=== PATIENT | female | born 1950 | race Caucasian/White ===

== ENCOUNTER → 2016-06-12 | Outpatient (CLI) | payer OTHER ==
[2016-06-12 13:06] LABS: ALT 31 U/L (9-52); AST 23 U/L (14-36); Alkaline Phosphatase 118 U/L (38-126); Anion Gap 11 mmol/L; Blood Urea Nitrogen 18 mg/dL (7-17); Calcium 10.7 mg/dL (8.4-10.2); Carbon Dioxide 29 mmol/L (22-30); Chloride 104 mmol/L (98-107); Glucose 97 mg/dL (74-99); Non-African American GFR(MDRD) >60 (>60 ml/min/1.73 sqM); Potassium 4.4 mmol/L (3.5-5.1); Sodium 144 mmol/L (137-145); Total Bilirubin 0.6 mg/dL (0.2-1.3); Total Protein 7.1 g/dL (6.3-8.2)
== END | disposition home or self-care (01) ==
LOC: LABWHC1 12:24
PROVIDERS: ATTEND Internal Medicine Endocrinology, Diabetes & Metabolism
DX: E21.0 Primary hyperparathyroidism (principal)
CPT/HCPCS: 36415; 80053; 82306; 83970

== ENCOUNTER → 2016-10-22 | Outpatient (CLI) | payer OTHER ==
[2016-10-22 10:30] LABS: ALT 21 U/L (9-52); AST 23 U/L (14-36); Alkaline Phosphatase 114 U/L (38-126); Anion Gap 9 mmol/L; Blood Urea Nitrogen 25 mg/dL (7-17); Calcium 10.4 mg/dL (8.4-10.2); Carbon Dioxide 25 mmol/L (22-30); Chloride 106 mmol/L (98-107); Glucose 91 mg/dL (74-99); Non-African American GFR(MDRD) >60 (>60 ml/min/1.73 sqM); Potassium 4.6 mmol/L (3.5-5.1); Sodium 140 mmol/L (137-145); Total Bilirubin 0.4 mg/dL (0.2-1.3); Total Protein 7.2 g/dL (6.3-8.2)
== END ==
LOC: LABWHC1 09:41
PROVIDERS: ATTEND Internal Medicine Endocrinology, Diabetes & Metabolism
DX: E21.0 Primary hyperparathyroidism (principal)
CPT/HCPCS: 36415; 80053; 82306; 83970

== ENCOUNTER → 2017-04-07 | Outpatient (CLI) | payer MEDICARE ==
[2017-04-07 13:03] LABS: ALT 29 U/L (9-52); AST 21 U/L (14-36); Alkaline Phosphatase 89 U/L (38-126); Anion Gap 9 mmol/L; Blood Urea Nitrogen 24 mg/dL (7-17); Calcium 10.5 mg/dL (8.4-10.2); Carbon Dioxide 30 mmol/L (22-30); Chloride 103 mmol/L (98-107); Glucose 101 mg/dL (74-99); Non-African American GFR(MDRD) >60 (>60 ml/min/1.73 sqM); Potassium 4.3 mmol/L (3.5-5.1); Sodium 142 mmol/L (137-145); Total Bilirubin 0.2 mg/dL (0.2-1.3); Total Protein 7.1 g/dL (6.3-8.2)
== END | disposition home or self-care (01) ==
LOC: LABWHC1 11:47
PROVIDERS: ATTEND Internal Medicine Endocrinology, Diabetes & Metabolism
DX: E21.0 Primary hyperparathyroidism (principal)
CPT/HCPCS: 36415; 80053; 82306; 83970; 84443

== ENCOUNTER → 2017-08-11 | Outpatient (CLI) | payer MEDICARE ==
[2017-08-11 10:45] LABS: ALT 27 U/L (9-52); AST 24 U/L (14-36); Albumin 4.4 g/dL (3.5-5.0); Alkaline Phosphatase 115 U/L (38-126); Anion Gap 9 mmol/L; Blood Urea Nitrogen 17 mg/dL (7-17); Calcium 10.8 mg/dL (8.4-10.2); Carbon Dioxide 28 mmol/L (22-30); Chloride 104 mmol/L (98-107); Glucose 91 mg/dL (74-99); Potassium 4.4 mmol/L (3.5-5.1); Sodium 141 mmol/L (137-145); Total Bilirubin 0.4 mg/dL (0.2-1.3); Total Protein 7.2 g/dL (6.3-8.2)
[2017-08-11 15:56] LABS: Vitamin D 25 Hydroxy 49.6 ng/mL (30.0-100.0)
== END | disposition home or self-care (01) ==
LOC: LABWHC1 09:56
PROVIDERS: ATTEND Internal Medicine Endocrinology, Diabetes & Metabolism
DX: E21.0 Primary hyperparathyroidism (principal)
CPT/HCPCS: 36415; 80053; 82306; 83970

== ENCOUNTER → 2017-12-17 | Outpatient (CLI) | payer MEDICARE ==
[2017-12-17 11:28] LABS: ALT 32 U/L (9-52); AST 27 U/L (14-36); Albumin 4.2 g/dL (3.5-5.0); Alkaline Phosphatase 99 U/L (38-126); Anion Gap 7 mmol/L; Blood Urea Nitrogen 21 mg/dL (7-17); Calcium 10.3 mg/dL (8.4-10.2); Carbon Dioxide 27 mmol/L (22-30); Chloride 106 mmol/L (98-107); Glucose 95 mg/dL (74-99); Potassium 4.3 mmol/L (3.5-5.1); Sodium 140 mmol/L (137-145); Total Bilirubin 0.4 mg/dL (0.2-1.3); Total Protein 6.7 g/dL (6.3-8.2)
[2017-12-17 16:48] LABS: Parathyroid Hormone Intact 107.4 pg/mL (14.0-72.0)
[2017-12-17 17:57] LABS: Vitamin D 25 Hydroxy 27.3 ng/mL (30.0-100.0)
== END | disposition home or self-care (01) ==
LOC: LABWHC1 10:47
PROVIDERS: ATTEND Internal Medicine Endocrinology, Diabetes & Metabolism
DX: E21.0 Primary hyperparathyroidism (principal)
CPT/HCPCS: 36415; 80053; 82306; 83970

== ENCOUNTER → 2018-06-01 | Outpatient (CLI) | payer MEDICARE ==
[2018-06-01 17:32] LABS: ALT 28 U/L (9-52); AST 27 U/L (14-36); Albumin 3.9 g/dL (3.5-5.0); Albumin/Globulin Ratio 1.5; Alkaline Phosphatase 110 U/L (38-126); Anion Gap 6 mmol/L; Blood Urea Nitrogen 20 mg/dL (7-17); Calcium 10.1 mg/dL (8.4-10.2); Carbon Dioxide 28 mmol/L (22-30); Chloride 106 mmol/L (98-107); Globulin 2.6 g/dL; Glucose 88 mg/dL (74-99); Potassium 4.1 mmol/L (3.5-5.1); Sodium 140 mmol/L (137-145); Total Bilirubin 0.2 mg/dL (0.2-1.3); Total Protein 6.5 g/dL (6.3-8.2)
[2018-06-02 04:37] LABS: Vitamin D 25 Hydroxy 49.2 ng/mL (30.0-100.0)
[2018-06-02 05:07] LABS: Parathyroid Hormone Intact 110.6 pg/mL (14.0-72.0)
== END | disposition home or self-care (01) ==
LOC: LABWHC1 16:35
PROVIDERS: ATTEND Internal Medicine Endocrinology, Diabetes & Metabolism
DX: E21.0 Primary hyperparathyroidism (principal)
CPT/HCPCS: 36415; 80053; 82306; 83970

== ENCOUNTER → 2018-08-05 | Outpatient (CLI) | payer MEDICARE ==
--- NOTE | 2018-08-05 12:22 | MM ---
Reason for exam: screening (asymptomatic). Last mammogram was performed 1 year and 3 months ago. History: Patient is postmenopausal. Benign cyst aspiration of the right breast, August 31, 1999. Benign excisional biopsy of the left breast, 1995. Cyst aspiration of the left breast. Cyst aspiration of the right breast. Excisional biopsy of the right breast. Physical Findings: A clinical breast exam by your physician is recommended on an annual basis and results should be correlated with mammographic findings. MG 3D Screening Mammo W/Cad Bilateral CC and MLO view(s) were taken. Prior study comparison: May 14, 2017, bilateral MG 3d screening mammo w/cad. December 06, 2015, bilateral MG screening mammo w CAD. The breast tissue is heterogeneously dense. This may lower the sensitivity of mammography. There are benign appearing vascular calcifications bilaterally. There is no discrete abnormality. ASSESSMENT: Benign, BI-RAD 2 RECOMMENDATION: Routine screening mammogram of both breasts in 1 year.
== END | disposition home or self-care (01) ==
LOC: RADMAMWWP 08:33
PROVIDERS: ATTEND Internal Medicine
DX: Z12.31 Encounter for screening mammogram for malignant neoplasm of breast (principal)
CPT/HCPCS: 77063; 77067

== ENCOUNTER → 2018-09-23 | Outpatient (CLI) | payer MEDICARE ==
[2018-09-24 00:18] LABS: Vitamin D 25 Hydroxy 30.9 ng/mL (30.0-100.0)
[2018-09-24 00:31] LABS: Albumin 4.2 g/dL (3.80-4.90); Albumin/Globulin Ratio 2.63 (1.60-3.17); Anion Gap 10.6 mmol/L (4.00-12.00); Calcium 10.1 mg/dL (8.7-10.3); Carbon Dioxide 24.4 mmol/L (21.6-31.8); Globulin 1.6 g/dL (1.6-3.3); Potassium 3.8 mmol/L (3.5-5.5); Total Bilirubin 0.3 mg/dL (0.2-1.2); Total Protein 5.8 g/dL (6.2-8.2)
== END | disposition home or self-care (01) ==
LOC: LABWHC1 14:04
PROVIDERS: ATTEND Internal Medicine Endocrinology, Diabetes & Metabolism
DX: E21.0 Primary hyperparathyroidism (principal)
CPT/HCPCS: 36415; 80053; 82306; 83970

== ENCOUNTER → 2019-03-31 | Outpatient (CLI) | payer MEDICARE ==
--- NOTE | 2019-03-31 07:18 | US ---
EXAMINATION TYPE: US thyroid st tissue head/neck DATE OF EXAM: 03/31/2019 COMPARISON: US CLINICAL HISTORY: E21.0 Primary Hyperparathyroidism. Hyperparathyroidism GLAND SIZE: Right Lobe: 3.4 x 1.3 x 1.3 cm Overall Parenchyma: Slightly heterogeneous Left Lobe: 3.9 x 0.9 x 1.2 cm Overall Parenchyma: Slightly heterogeneous Isthmus Thickness: 0.5 cm Bilateral neck scanned, no evidence of lymphadenopathy. No evidence of nodules bilaterally, stable ap pearance when compared to previous. Please note parathyroid area scanned, no abnormality visualized. IMPRESSION: Slightly heterogenous thyroid echotexture, however no discrete measurable nodule is seen in the thyroid gland is nonenlarged.
[2019-03-31 11:30] LABS: African American GFR (CKD) 107.8 (60.0-200.0); Albumin 4.4 g/dL (3.80-4.90); Albumin/Globulin Ratio 2.2 (1.60-3.17); Anion Gap 6.3 mmol/L (4.00-12.00); BUN/Creat Ratio 33.33 Ratio (12.00-20.00); Calcium 10.2 mg/dL (8.7-10.3); Carbon Dioxide 27.7 mmol/L (21.6-31.8); Potassium 4.6 mmol/L (3.5-5.5); Total Bilirubin 0.3 mg/dL (0.3-1.2); Total Protein 6.4 g/dL (6.2-8.2)
== END | disposition home or self-care (01) ==
LOC: LABWHC1 06:35
PROVIDERS: ATTEND Internal Medicine Endocrinology, Diabetes & Metabolism
DX: E07.89 Other specified disorders of thyroid (principal); E21.0 Primary hyperparathyroidism
CPT/HCPCS: 36415; 76536; 80053; 82306; 83970

== ENCOUNTER → 2019-04-14 | Outpatient (CLI) | payer MEDICARE ==
[2019-04-14 20:40] LABS: Calcium 24 Hour,Urine 116.6 mg/24Hr (100.0-250.0)
== END | disposition home or self-care (01) ==
LOC: LABWHC1 13:58
PROVIDERS: ATTEND Internal Medicine Endocrinology, Diabetes & Metabolism
DX: E21.0 Primary hyperparathyroidism (principal); R53.83 Other fatigue
CPT/HCPCS: 36415; 81050; 82340; 84443

== ENCOUNTER → 2019-04-16 | Outpatient (CLI) | payer MEDICARE ==
--- NOTE | 2019-04-19 16:45 | BD ---
EXAMINATION TYPE: Axial Bone Density DATE OF EXAM: 04/16/2019 COMPARISON: NONE CLINICAL HISTORY: Height: 4 FT 9 3/4 IN Weight: 153 FRAX RISK QUESTIONS: History of Fracture in Adulthood: YES Secondary Osteoporosis: 3. Menopause before 45: YES RISK FACTORS HISTORY OF: Active: YES Postmenopausal woman: AGE 43 Hyperparathyroidism: YES MEDICATIONS: Additional Medications: VIT D, BLOOD PRESSURE MEDS, OTC JOINT HEALTH,LOW DOSE ASPIRIN Additional History: EXAM MEASUREMENTS: Bone mineral densitometry was performed using the [employer] System. Bone mineral density as measured about the Lumbar spine is: ----- L1-L4(G/cm2): 0.972 T Score Values are as follows: ----- L2: -2.0 ----- L3: -2.0 ----- L4: -1.2 ----- L1-L4: -1.7 Bone mineral density has: INCREASED 0.8 % SINCE STUDY OF 2015 Bone mineral density about the R hip (g/cm2): 0.824 Bone mineral density about the L hip (g/cm2): 0.768 T Score values are as follows: -----R Neck: -1.5 -----L Neck: -1.9 -----R Total: -1.3 -----L Total: -1.6 Bone mineral density has: DECREASED -4.5 % SINCE STUDY OF 2015 IMPRESSION: Osteopenia (T Score between -2.5 and -1). There is slightly increased risk of fracture and the patient may be considered for treatment. Re-Screen 2-5 years. NOTE: T-SCORE=SD OF THE YOUNG ADULT MEAN.
== END | disposition home or self-care (01) ==
LOC: RADBDWWP 15:31
PROVIDERS: ATTEND Internal Medicine Endocrinology, Diabetes & Metabolism
DX: E21.0 Primary hyperparathyroidism (principal); M85.80 Other specified disorders of bone density and structure, unspecified site
CPT/HCPCS: 77080

== ENCOUNTER → 2019-07-14 | Outpatient (CLI) | payer MEDICARE ==
[2019-07-14 16:18] LABS: African American GFR (CKD) 114.5 (60.0-200.0); Albumin 4.2 g/dL (3.80-4.90); Albumin/Globulin Ratio 2.47 (1.60-3.17); Anion Gap 5.7 mmol/L (4.00-12.00); Calcium 9.3 mg/dL (8.7-10.3); Carbon Dioxide 27.3 mmol/L (21.6-31.8); Globulin 1.7 g/dL (1.6-3.3); Non-African American GFR(CKD) 98.8 (60.0-200.0); Potassium 4.1 mmol/L (3.5-5.5); Total Bilirubin 0.5 mg/dL (0.2-1.2); Total Protein 5.9 g/dL (6.2-8.2)
[2019-07-14 18:45] LABS: Calcium 24 Hour,Urine 85.3 mg/24Hr (100.0-250.0)
== END | disposition home or self-care (01) ==
LOC: LABWHC1 10:11
PROVIDERS: ATTEND Internal Medicine Endocrinology, Diabetes & Metabolism
DX: E83.52 Hypercalcemia (principal); R53.83 Other fatigue; E89.0 Postprocedural hypothyroidism
CPT/HCPCS: 36415; 80053; 81050; 82306; 82340; 84443

== ENCOUNTER → 2019-12-07 | Outpatient (CLI) | payer MEDICARE ==
[2019-12-07 17:45] LABS: Albumin 4.3 g/dL (3.80-4.90); Albumin/Globulin Ratio 2.05 (1.60-3.17); Anion Gap 8.8 mmol/L (4.00-12.00); BUN/Creat Ratio 38.33 Ratio (12.00-20.00); Calcium 9.6 mg/dL (8.7-10.3); Carbon Dioxide 26.2 mmol/L (21.6-31.8); Globulin 2.1 g/dL (1.6-3.3); Non-African American GFR(CKD) 92.4 (60.0-200.0); Potassium 4.4 mmol/L (3.5-5.5); Total Bilirubin 0.5 mg/dL (0.3-1.2); Total Protein 6.4 g/dL (6.2-8.2)
== END | disposition home or self-care (01) ==
LOC: LABWHC1 10:00
PROVIDERS: ATTEND Internal Medicine Endocrinology, Diabetes & Metabolism
DX: E21.0 Primary hyperparathyroidism (principal); E55.9 Vitamin D deficiency, unspecified
CPT/HCPCS: 36415; 80053; 82306; 83970

== ENCOUNTER → 2020-05-10 | Outpatient (CLI) | payer MEDICARE ==
--- NOTE | 2020-05-10 11:05 | XR ---
EXAMINATION TYPE: XR chest 2V DATE OF EXAM: 05/10/2020 COMPARISON: NONE HISTORY: Shortness of breath TECHNIQUE: Frontal and lateral views of the chest are obtained. FINDINGS: Scattered senescent parenchymal changes noted. Hyperinflation compatible with COPD. No evidence for infiltrate. No evidence for atelectasis. Heart size is stable. Mediastinal structures are stable and grossly unremarkable. No evidence for hilar prominence. Degenerative changes dorsal spine. IMPRESSION: 1. No evidence for acute pulmonary disease.
[2020-05-10 11:31] LABS: HCT 40.2 % (34.0-46.0); HGB 13.2 gm/dL (11.4-16.0); MCH 29.4 pg (25.0-35.0); MCHC 32.9 g/dL (31.0-37.0); MCV 89.4 fL (80.0-100.0); Mean Platelet Volume 8.4; Platelet Count 215 k/uL (150-450); RDW 12.5 % (11.5-15.5); WBC 7.1 k/uL (3.8-10.6)
[2020-05-10 15:49] LABS: Albumin 4.3 g/dL (3.80-4.90); Albumin/Globulin Ratio 2.39 (1.60-3.17); Anion Gap 7.8 mmol/L (4.00-12.00); Calcium 9.3 mg/dL (8.7-10.3); Carbon Dioxide 27.2 mmol/L (21.6-31.8); Globulin 1.8 g/dL (1.6-3.3); Non-African American GFR(CKD) 92.4 (60.0-200.0); Potassium 4.1 mmol/L (3.5-5.5); Total Bilirubin 0.5 mg/dL (0.2-1.2); Total Protein 6.1 g/dL (6.2-8.2)
== END | disposition home or self-care (01) ==
LOC: LABWHC1 10:29
PROVIDERS: ATTEND Internal Medicine
DX: R50.9 Fever, unspecified (principal)
CPT/HCPCS: 36415; 71046; 80053; 85027; 87040

== ENCOUNTER → 2020-05-11 | Outpatient (CLI) | payer MEDICARE ==
--- NOTE | 2020-05-11 13:14 | ECHOF ---
Referral Reason:R50.82 post procedural fever MEASUREMENTS -------- HEIGHT: 147.3 cm WEIGHT: 68.0 kg BP: 120/63 RVIDd: 3.0 cm (< 3.3) IVSd: 1.1 cm (0.6 - 1.1) LVIDd: 4.1 cm (3.9 - 5.3) LVPWd: 1.1 cm (0.6 - 1.1) IVSs: 1.6 cm LVIDs: 2.4 cm LVPWs: 1.5 cm LA Diam: 3.4 cm (2.7 - 3.8) LAESV Index (A-L): 18.04 ml/m Ao Diam: 2.7 cm (2.0 - 3.7) AV Cusp: 1.8 cm (1.5 - 2.6) MV EXCURSION: 15.640 mm (> 18.000) MV EF SLOPE: 38 mm/s (70 - 150) EPSS: 0.0 cm MV E Jean Carlos: 0.83 m/s MV DecT: 197 ms MV A Jean Carlos: 0.86 m/s MV E/A Ratio: 0.97 AR PHT: 960 ms RAP: 5.00 mmHg RVSP: 26.34 mmHg FINDINGS -------- Sinus rhythm. This was a technically good study. The left ventricular size is normal. There is borderline concentric left ventricular hypertrophy. Overall left ventricular systolic function is normal with, an EF between 60 - 65 %. The right ventricle is normal in size. Normal LA size by volume 22+/-6 ml/m2. The right atrium is normal in size. Interatrial and interventricular septum intact. Aortic valve is trileaflet and is mildly thickened. There is mild aortic regurgitation. Mild mitral regurgitation is present. Mild tricuspid regurgitation present. Right ventricular systolic pressure is normal at < 35 mmHg. Trace/mild (physiologic) pulmonic regurgitation. The aortic root, ascending aorta and aortic arch are normal. Normal inferior vena cava with normal inspiratory collapse consistent with estimated right atrial pre ssure of 5 mmHg. There is no pericardial effusion. CONCLUSIONS -------- 1. The left ventricular size is normal. 2. There is borderline concentric left ventricular hypertrophy. 3. Overall left ventricular systolic function is normal with, an EF between 60 - 65 %. 4. Aortic valve is trileaflet and is mildly thickened. 5. There is mild aortic regurgitation. 6. Mild mitral regurgitation is present. 7. Mild tricuspid regurgitation present. 8. Trace/mild (physiologic) pulmonic regurgitation. 9. There is no pericardial effusion. CHILD CARE: RICKY Clark
== END | disposition home or self-care (01) ==
LOC: RADECHMAIN 12:07
PROVIDERS: ATTEND Internal Medicine
DX: I08.3 Combined rheumatic disorders of mitral, aortic and tricuspid valves (principal); I09.89 Other specified rheumatic heart diseases; R50.82 Postprocedural fever
CPT/HCPCS: 93306

== ENCOUNTER → 2020-06-07 | Outpatient (CLI) | payer MEDICARE ==
[2020-06-08 03:39] LABS: African American GFR (CKD) 86.6 (60.0-200.0); Albumin 4.5 g/dL (3.80-4.90); Albumin/Globulin Ratio 2.37 (1.60-3.17); Anion Gap 9.9 mmol/L (4.00-12.00); Calcium 9.5 mg/dL (8.7-10.3); Carbon Dioxide 26.1 mmol/L (21.6-31.8); Globulin 1.9 g/dL (1.6-3.3); Non-African American GFR(CKD) 74.7 (60.0-200.0); Potassium 4.2 mmol/L (3.5-5.5); Total Bilirubin 0.4 mg/dL (0.3-1.2); Total Protein 6.4 g/dL (6.2-8.2)
== END | disposition home or self-care (01) ==
LOC: LABWHC1 14:44
PROVIDERS: ATTEND Internal Medicine Endocrinology, Diabetes & Metabolism
DX: E21.0 Primary hyperparathyroidism (principal)
CPT/HCPCS: 36415; 80053; 82306; 83970

== ENCOUNTER → 2020-09-13 | Outpatient (CLI) | payer MEDICARE ==
[2020-09-14 05:25] LABS: African American GFR (CKD) 101.7 (60.0-200.0); Albumin 4.7 g/dL (3.80-4.90); Albumin/Globulin Ratio 2.24 (1.60-3.17); Anion Gap 12.6 mmol/L (4.00-12.00); BUN/Creat Ratio 28.57 Ratio (12.00-20.00); Calcium 9.9 mg/dL (8.7-10.3); Carbon Dioxide 25.4 mmol/L (21.6-31.8); Globulin 2.1 g/dL (1.6-3.3); Non-African American GFR(CKD) 87.8 (60.0-200.0); Potassium 4.3 mmol/L (3.5-5.5); Total Bilirubin 0.5 mg/dL (0.3-1.2); Total Protein 6.8 g/dL (6.2-8.2)
== END | disposition home or self-care (01) ==
LOC: LABWHC1 10:46
PROVIDERS: ATTEND Internal Medicine Endocrinology, Diabetes & Metabolism
DX: E21.0 Primary hyperparathyroidism (principal)
CPT/HCPCS: 36415; 80053; 82306; 83970

== ENCOUNTER → 2021-03-29 | Outpatient (CLI) | payer MEDICARE ==
--- NOTE | 2021-03-29 16:20 | BD ---
EXAMINATION TYPE: Axial Bone Density DATE OF EXAM: 03/29/2021 COMPARISON: 04.16.2019 CLINICAL HISTORY: 70 YR OLD FEMALE....ICD-10 CODE: N95.8 POST MENOPAUSAL Height: 57.6 Weight: 151 FRAX RISK QUESTIONS: Family History (Parent hip fracture): YES History of Fracture in Adulthood: YES Secondary Osteoporosis: YES 2. Hyperthyroidism: YES, PARATHYROID GLAND REMOVED 3. Menopause before 45: YES RISK FACTORS HISTORY OF: RT FOOT X2 TIMES SINCE AGE 49 Family History of Osteoporosis: YES, MOTHER, WITH HIP FX Postmenopausal woman: YES, AT AGE 43 YRS OLD Lost more than 2 inches in height since high school: YES Hyperparathyroidism: YES, REMOVAL OF ONE PARATHYROID GLAND Adrenal Insufficiency: NO MEDICATIONS: Prednisone or other steroids: YES, ON AND OFF Additional Medications: BP MEDS, STATIN FOR CHOLESTEROL, VIT D, AND TOOK CALCIUM IN PAST STOPPED AFT ER PARATHYROID GLAND REMOVED Additional History: ARRYTHMIA, HYPERCALCEMIA, CHOLESTEROL, EXAM MEASUREMENTS: Bone mineral densitometry was performed using the [employer] System. Bone mineral density as measured about the Lumbar spine is: ----- L1-L4(G/cm2): 0.957 T Score Values are as follows: ----- L1: -2.2 ----- L2: -2.1 ----- L3: -1.5 ----- L4: -1.8 ----- L1-L4: -1.9 Bone mineral density has: Decreased -1.5% since study of: 04.16.2019 Bone mineral density about the R hip (g/cm2): 0.852 Bone mineral density about the L hip (g/cm2): 0.837 T Score values are as follows: -----R Neck: -1.8 -----L Neck: -1.8 -----R Total: -1.2 -----L Total: -1.4 Bone mineral density has: Increased 2.3% since study of: 04.16.2019 FRAX%s: THERE IS A 25.4% CHANCE FOR A MAJOR OSTEOPOROTIC FX AND A 7.3% FOR HIP......PROBABILITY F OR FX IN 10 YRS TIME IMPRESSION: Osteopenia (T Score between -2.5 and -1). There is slightly increased risk of fracture and the patient may be considered for treatment. Re-Screen 2-5 years. NOTE: T-SCORE=SD OF THE YOUNG ADULT MEAN.
== END | disposition home or self-care (01) ==
LOC: RADBDWWP 08:07
PROVIDERS: ATTEND Internal Medicine
DX: M85.89 Other specified disorders of bone density and structure, multiple sites (principal); Z78.0 Asymptomatic menopausal state
CPT/HCPCS: 77080

== ENCOUNTER → 2021-04-30 | Outpatient (CLI) | payer MEDICARE ==
[2021-04-30 15:27] LABS: African American GFR (CKD) 108.4 (60.0-200.0); Albumin 4.3 g/dL (3.8-4.9); Albumin/Globulin Ratio 2.17 (1.60-3.17); BUN/Creat Ratio 29.2 Ratio (12.00-20.00); Blood Urea Nitrogen 16.5 mg/dL (9.0-27.0); Calcium 9.3 mg/dL (8.7-10.3); Carbon Dioxide 25.6 mmol/L (20.0-27.5); Non-African American GFR(CKD) 93.5 (60.0-200.0); Potassium 4.6 mmol/L (3.5-5.5); Total Bilirubin 0.3 mg/dL (0.30-1.20); Total Protein 6.3 g/dL (6.2-8.2)
== END | disposition home or self-care (01) ==
LOC: LABWHC1 09:52
PROVIDERS: ATTEND Internal Medicine Endocrinology, Diabetes & Metabolism
DX: E55.9 Vitamin D deficiency, unspecified (principal); E21.0 Primary hyperparathyroidism
CPT/HCPCS: 36415; 80053; 82306; 83970

== ENCOUNTER → 2022-04-24 | Outpatient (CLI) | payer MEDICARE ==
[2022-04-24 18:12] LABS: African American GFR (CKD) 112.1 (60.0-200.0); Albumin 4.3 g/dL (3.8-4.9); Albumin/Globulin Ratio 1.72 (1.60-3.17); Anion Gap 8.5 mmol/L (10.00-18.00); BUN/Creat Ratio 35.8 Ratio (12.00-20.00); Blood Urea Nitrogen 17.9 mg/dL (9.0-27.0); Calcium 9.3 mg/dL (8.7-10.3); Carbon Dioxide 26.5 mmol/L (20.0-27.5); Globulin 2.5 g/dL (1.6-3.3); Non-African American GFR(CKD) 96.7 (60.0-200.0); Total Bilirubin 0.2 mg/dL (0.30-1.20); Total Protein 6.8 g/dL (6.2-8.2)
== END | disposition home or self-care (01) ==
LOC: LABWHC1 10:06
PROVIDERS: ATTEND Internal Medicine Endocrinology, Diabetes & Metabolism
DX: E21.0 Primary hyperparathyroidism (principal)
CPT/HCPCS: 36415; 80053; 82306; 83970

== ENCOUNTER → 2023-04-24 | Outpatient (CLI) | payer MEDICARE ==
[2023-04-24 16:47] LABS: ALT 15 U/L (8-44); AST 18 U/L (13-35); Albumin 4.2 g/dL (3.8-4.9); Alkaline Phosphatase 103 U/L (41-126); Blood Urea Nitrogen 22.3 mg/dL (9.0-27.0); Calcium 10.2 mg/dL (8.7-10.3); Chloride 104 mmol/L (96-109); Globulin 2.1 g/dL (1.6-3.3); Glucose 94 mg/dL (70-110); Potassium 4.4 mmol/L (3.5-5.5); Sodium 141 mmol/L (135-145); Total Bilirubin 0.2 mg/dL (0.3-1.2); Total Protein 6.3 g/dL (6.2-8.2)
== END | disposition home or self-care (01) ==
LOC: LABWHC1 09:31
PROVIDERS: ATTEND Internal Medicine Endocrinology, Diabetes & Metabolism
DX: E21.0 Primary hyperparathyroidism (principal)
CPT/HCPCS: 36415; 80053; 82306; 83970

== ENCOUNTER → 2024-04-26 | Outpatient (CLI) | payer MEDICARE ==
[2024-04-26 16:17] LABS: ALT 13 U/L (8-44); AST 20 U/L (13-35); Albumin 4.3 g/dL (3.8-4.9); Albumin/Globulin Ratio 2.05 Ratio (1.60-3.17); Alkaline Phosphatase 108 U/L (41-126); BUN/Creat Ratio 50.75 Ratio (12.00-20.00); Blood Urea Nitrogen 20.3 mg/dL (9.0-27.0); Calcium 9.9 mg/dL (8.7-10.3); Carbon Dioxide 27.9 mmol/L (21.6-31.8); Chloride 102 mmol/L (96-109); Globulin 2.1 g/dL (1.6-3.3); Glucose 81 mg/dL (70-110); Potassium 4.7 mmol/L (3.5-5.5); Sodium 141 mmol/L (135-145); Total Bilirubin <0.2 mg/dL (0.3-1.2); Total Protein 6.4 g/dL (6.2-8.2)
== END | disposition home or self-care (01) ==
LOC: LABWHC1 11:24
PROVIDERS: ATTEND Internal Medicine Endocrinology, Diabetes & Metabolism
DX: E55.9 Vitamin D deficiency, unspecified (principal); Z86.39 Personal history of other endocrine, nutritional and metabolic disease
CPT/HCPCS: 36415; 80053; 82306; 83970